=== PATIENT | female | born 1995 | race Caucasian/White ===

== ENCOUNTER 2019-10-18 13:59 | Emergency (ER) | payer BC ==
[~2019-10-18] VITALS: Ht 172.7 cm; Wt 90.0 kg
[2019-10-18 14:20] VITALS: BP 146/75
[2019-10-18] MEDS ORDERED: AMOX1TAB61 PO (14:27)
--- NOTE | 2019-10-18 14:27 | PHYS DOC ---
Past Medical History Past Medical History: Seizure (TRINITY GARCIA DO) Past Surgical History: No Surgical History (TRINITY GARCIA DO) Smoking Status: Never Smoker Alcohol Use: None Drug Use: None (TRINITY GARCIA DO) Adult General Chief Complaint Chief Complaint: DENTAL PROBLEM [facility] HPI Patient is a 23 year old female who presents with dental pain this been ongoing since Friday. The patient states she had her wisdom teeth taken out the past but is unsure how many were taken out. The patient is concerned that she might have a wisdom tooth growing into the back lower right portion of her mouth. Patient says she has been having increasing pain since Friday. The patient does not have a dentist. Denies fevers. Complete ROS were reviewed and found to be within normal limits, except as documented in the HPI (TRINITY LINCOLN APRN) Current Medications Current Medications Current Medications Medications (Trade) Dose Ordered Sig/Windy Start Time Stop Time Status Last Admin Dose Admin Al Hydroxide/Mg Hydroxide (Mylanta Plus Xs) 30 ml 1X ONCE 10/18/19 14:30 10/18/19 14:31 DC 10/18/19 14:55 30 ML Lidocaine HCl (Viscous Lidocaine) 15 ml 1X ONCE 10/18/19 14:30 10/18/19 14:31 DC 10/18/19 14:55 15 ML (TRINITY GARCIA DO) Allergies Allergies Allergies Coded Allergies Type Severity Reaction Last Updated Verified No Known Drug Allergies 10/18/19 No (TRINITY GARCIA DO) Physical Exam Physical Exam Constitutional: Well developed, well nourished, no acute distress, non-toxic appearance. [] HENT: Normocephalic, atraumatic, bilateral external ears normal, oropharynx moist, no oral exudates, nose normal. Appears to have wisdom tooth growing in R lower back teeth. Neurologic: Alert and oriented X 3, normal motor function, normal sensory function, no focal deficits noted. [] Psychologic: Affect normal, judgement normal, mood normal. [] (TRINITY LINCOLN APRN) Current Patient Data Vital Signs Vital Signs Date Time Temp Pulse Resp B/P (MAP) Pulse Ox O2 Delivery O2 Flow Rate FiO2 10/18/19 14:20 98.0 100 18 146/75 (98) 97 Room Air 98.0 (TRINITY GARCIA DO) EKG EKG [] (TRINITY LINCOLN APRN) Radiology/Procedures Radiology/Procedures [] (TRINITY LINCOLN APRN) Course & Med Decision Making Course & Med Decision Making Pertinent Labs and Imaging studies reviewed. (See chart for details) Discussed with the patient that she needs to follow-up with a dentist. Resources given to the patient. Will order dental balls in the ER. (TRINTIY LINCOLN APRN) Dragon Disclaimer Dragon Disclaimer This electronic medical record was generated, in whole or in part, using a voice recognition dictation system. (TRINITY LINCOLN APRN) Departure Departure Impression: Primary Impression: Dentalgia Disposition: HOME, SELF-CARE Condition: STABLE Referrals: NO PCP (PCP) Patient Instructions: Dental Pain Additional Instructions: Thank you for visiting [facility]. We appreciate you trusting us with your care. If any additional problems come up don't hesitate to return to visit us. Please follow up with your primary care provider so they can plan additional care if needed and know about the problem that you had. If symptoms worsen come back to the Emergency Department. Any concerning symptoms that start such as chest pain, shortness of air, weakness or numbness on one side of the body, running high fevers or any other concerning symptoms return to the ER. You have been prescribed an antibiotic today to help fight your infection. Please take all of the antibiotic as directed. If after 48 hours the infection is not improving, please return for more care. If the infection worsens, return to ER for additional care. Scripts Amoxicillin/Potassium Clav (AUGMENTIN 875-125 TABLET) 1 Each Tablet 1 TAB PO BID for 7 Days, #14 TAB 0 Refills Prov: TRINITY LINCOLN APRN 10/18/19 Attending Signature Attending Signature I have reviewed the PA/DIVISION SUPERVISOR's note and plan of care. I was available for consultation as needed during the patient's visit in the emergency department. I agree with the clinical impression, plan, and disposition. (TRINITY GARCIA DO) TRINITY LINCOLN APRN Oct 18, 2019 14:27 TRINITY GARCIA DO Oct 18, 2019 20:38
[2019-10-18] MEDS ORDERED: LIDOCAINE 2% VISCOUS 15 ML SOLUTION. SWSW ONE (14:30)
[2019-10-18] MEDS ORDERED: MAG HYDROX/ALUMINUM HYD/SIMETH 30 ML ORAL.SUSP PO ONE (14:30)
== END 2019-10-18 14:58 | disposition home or self-care (01) ==
LOC: ER 13:59
DX: K08.89 Other specified disorders of teeth and supporting structures (principal)
CPT/HCPCS: 99283

== ENCOUNTER 2020-02-08 16:38 | Emergency (ER) | payer BC ==
[~2020-02-08] VITALS: Ht 172.7 cm; Wt 90.0 kg
[~2020-02-08 16:38] MED LIST: AMOX1TAB61 PO
[2020-02-08 17:54] LABS: BILIRUBIN,URINE SMALL (NEG); CLARITY,URINE CLEAR; COLOR,URINE AMBER
[2020-02-08 17:55] LABS: NITRITE,URINE NEGATIVE (NEG); PH,URINE 6.5 (<5.0-8.0); PROTEIN,URINE NEGATIVE (NEG-TRACE)
[2020-02-08 18:07] LABS: BACTERIA,URINE FEW /HPF (0-FEW); SQUAMOUS EPITHELIAL CELL,UR OCC /LPF
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
[2020-02-08] MEDS ORDERED: CLIN300C8 PO (18:15)
[2020-02-08 18:22] VITALS: BP 105/43
== END 2020-02-08 18:22 | disposition home or self-care (01) ==
LOC: ER 16:38
DX: S30.23XA Contusion of vagina and vulva, initial encounter (principal); N76.0 Acute vaginitis; B96.89 Other specified bacterial agents as the cause of diseases classified elsewhere; Z98.890 Other specified postprocedural states; Z87.891 Personal history of nicotine dependence; X58.XXXA Exposure to other specified factors, initial encounter; Y93.89 Activity, other specified; Y92.89 Other specified places as the place of occurrence of the external cause; Y99.8 Other external cause status
CPT/HCPCS: 81001; 81025; 87086; 99283

== ENCOUNTER 2020-02-29 16:17 | Emergency (ER) | payer BC ==
[~2020-02-29] VITALS: Ht 172.7 cm; Wt 90.9 kg
[~2020-02-29 16:17] MED LIST changes: +CLIN300C8 PO
[2020-02-29 16:36] VITALS: BP 123/56
[2020-02-29] MEDS ORDERED: AZITHROMYCIN 250 MG TABLET. PO ONE (17:00)
[2020-02-29] MEDS ORDERED: cefTRIAXone IM 250 MG VIAL IM ONE (17:00)
[2020-02-29 17:13] LABS: BILIRUBIN,URINE NEGATIVE (NEG); CLARITY,URINE CLEAR; COLOR,URINE YELLOW; NITRITE,URINE NEGATIVE (NEG); PH,URINE 7.5 (<5.0-8.0); PROTEIN,URINE NEGATIVE (NEG-TRACE)
[2020-02-29 17:27] LABS: BACTERIA,URINE FEW /HPF (0-FEW); RBC,URINE OCC /HPF (0-2); SQUAMOUS EPITHELIAL CELL,UR FEW /LPF; WBC,URINE OCC /HPF (0-4)
--- NOTE | 2020-02-29 18:56 | PHYS DOC ---
Past Medical History Past Medical History: Seizure Past Surgical History: Other Additional Past Surgical Histo: WISDOM TEETH Smoking Status: Former Smoker Alcohol Use: Occasionally Drug Use: None General Adult EDM: Chief Complaint: VAGINAL PROBLEM HPI: HPI: Patient is a 24 year old female who presents to the emergency department with complaints of continued vaginal discharge and foul-smelling vaginal odor that i nitially began over a month ago. Patient denies any pelvic pain, abdominal pain, nausea, vomiting or diarrhea, dysuria, increased urinary frequency, hematuria, low back pain, or fever. She reports she is taking antibiotics for bacterial vaginosis and has been treated previously for presumed sexually transmitted infections with no improvement in her symptoms. She denies use of any [id number] douches. She currently denies any pain. Review of Systems: Review of Systems: Constitutional: Denies fever or chills. [] GI: Denies abdominal pain, nausea, vomiting, or diarrhea. [] : Denies dysuria; see HPI. [] Musculoskeletal: Denies back pain Neurologic: Denies headache Psychiatric: Denies depression or anxiety. [] Heart Score: Risk Factors: Risk Factors: DM, Current or recent (<one month) smoker, HTN, HLP, family history of CAD, obesity. Risk Scores: Score 0 - 3: 2.5% MACE over next 6 weeks - Discharge Home Score 4 - 6: 20.3% MACE over next 6 weeks - Admit for Clinical Observation Score 7 - 10: 72.7% MACE over next 6 weeks - Early Invasive Strategies Current Medications: Current Medications Medications (Trade) Dose Ordered Sig/Windy Start Time Stop Time Status Last Admin Dose Admin Azithromycin (Zithromax) 1,000 mg 1X ONCE 02/29/20 17:00 02/29/20 17:01 DC 02/29/20 17:13 1,000 MG Ceftriaxone Sodium (Rocephin Im) 250 mg 1X ONCE 02/29/20 17:00 02/29/20 17:01 DC 02/29/20 17:14 250 MG Allergies: Allergies: Allergies Coded Allergies Type Severity Reaction Last Updated Verified No Known Drug Allergies 10/18/19 No Physical Exam: PE: Constitutional: Well developed, well nourished, no acute distress, non-toxic appearance. HENT: Normocephalic, atraumatic, bilateral external ears normal, nose normal. Eyes: PERRLA, EOMI, conjunctiva normal, no discharge. Neck: Normal range of motion, no stridor. Cardiovascular: Heart rate regular rhythm Lungs & Thorax: Respirations even and unlabored, no retractions, no respiratory distress Pelvic Exam: High School Drafting Teacher present Nida RN Abdomen: Nontender, soft External Genitalia: Normal Skin Speculum: Normal vaginal mucosa, yellow, thick, malodorous cervical discharge present with strawberry appearance to cervix Bimanual: No adnexal masses or tenderness, No CMT Skin: Warm, dry, no erythema, no rash. Extremities: No cyanosis, ROM intact, no edema. Neurologic: Alert and oriented X 3, no focal deficits noted. Psychologic: Affect normal, judgement normal, mood normal. Current Patient Data: Labs: Laboratory Tests Test 02/29/20 16:55 Urine Collection Type Unknown Urine Color Yellow Urine Clarity Clear Urine pH 7.5 (<5.0-8.0) Urine Specific [place] 1.020 (1.000-1.030) Urine Protein Negative mg/dL (NEG-TRACE) Urine Glucose (UA) Negative mg/dL (NEG) Urine Ketones (Stick) Negative mg/dL (NEG) Urine Blood Negative (NEG) Urine Nitrite Negative (NEG) Urine Bilirubin Negative (NEG) Urine Urobilinogen Dipstick 1.0 mg/dL (0.2 mg/dL) Urine Leukocyte Esterase Negative (NEG) Urine RBC Occ /HPF (0-2) Urine WBC Occ /HPF (0-4) Urine Squamous Epithelial Cells Few /LPF Urine Bacteria Few /HPF (0-FEW) Urine Mucus Mod /LPF Microbiology 02/29/20 Wet Prep - Final, Complete Vital Signs: Vital Signs Date Time Temp Pulse Resp B/P (MAP) Pulse Ox O2 Delivery O2 Flow Rate FiO2 02/29/20 16:36 98.2 83 12 123/56 (78) 96 Room Air 98.2 EKG: EKG: [] Radiology/Procedures: Radiology/Procedures: [] Course & Med Decision Making: Course & Med Decision Making Pertinent Labs and Imaging studies reviewed. (See chart for details) Wet mount and UA are unremarkable. Patient was treated prophylactically with 250 mg of IM Rocephin, and 1 g of PO Zithromax. Patient was instructed to avoid having intercourse until the results of gonorrhea and chlamydia testing are available, patient was notified that these results would not be available for 48 hours. If one or both of these tests is positive, patient needs to refrain from intercourse for approximately 1 week following the treatment of any current partners. Patient was encouraged to follow-up with FIRE ALARM INSPECTOR, Dr. Lerma for further evaluation and treatment of this ongoing vaginal problem. Patient verbalized an understanding of home care, medications, follow-up, and return to ED instructions and was in agreement with the plan of care. [] Dragon Disclaimer: Dragon Disclaimer: This electronic medical record was generated, in whole or in part, using a voice recognition dictation system. Departure Departure Impression: Primary Impression: Vaginal odor Additional Impression: Concern about sexually transmitted disease in female without diagnosis Disposition: HOME, SELF-CARE Condition: STABLE Referrals: ESTEBAN LERMA Jr, MD Patient Instructions: Sexually Transmitted Disease, [id number] Additional Instructions: Recommend that you go to your local health department for comprehensive sexually transmitted disease testing. You have been treated for a suspected gonorrhea and chlamydia. Avoid having intercourse until the results of gonorrhea and chlamydia testing are available, these results will not be available for 48 hours. If one or both of these tests is positive, you need to refrain from intercourse for approximately 1 week following the treatment of any current partners. Follow-up with [facility] for further evaluation and treatment, return to the ER if symptoms worsen. Justicifation of Admission Dx: Justifications for Admission: Justification of Admission Dx: N/A JOSE LUIS CAREY APRN Feb 29, 2020 18:55
[2020-03-01 23:08] LABS: GC PROBE Negative (Negative)
== END 2020-02-29 18:23 | disposition home or self-care (01) ==
LOC: ER 16:17
DX: N89.8 Other specified noninflammatory disorders of vagina (principal); Z20.2 Contact with and (suspected) exposure to infections with a predominantly sexual mode of transmission; Z98.890 Other specified postprocedural states; Z87.891 Personal history of nicotine dependence
CPT/HCPCS: 81001; 81025; 87491; 87591; 96372; 99284; J0696; Q0111

== ENCOUNTER → 2020-03-22 | Outpatient (CLI) | payer BC ==
[2020-02-29 16:36] VITALS: BP 123/56
== END | disposition home or self-care (01) ==
LOC: SPEC 11:54
PROVIDERS: ATTEND Obstetrics & Gynecology
DX: N89.8 Other specified noninflammatory disorders of vagina (principal)
CPT/HCPCS: Q0111

== ENCOUNTER 2021-02-14 14:19 | Emergency (ER) | payer BC, OTHER ==
[~2021-02-14] VITALS: Ht 172.7 cm; Wt 86.9 kg
[~2021-02-14 14:19] MED LIST changes: -CLIN300C8 PO; +CLIN300C9 PO
[2021-02-14 15:21] VITALS: BP 112/69
[2021-02-14 17:33] LABS: BILIRUBIN,URINE NEGATIVE (NEG); CLARITY,URINE CLEAR; COLOR,URINE YELLOW; NITRITE,URINE NEGATIVE (NEG); PROTEIN,URINE NEGATIVE (NEG-TRACE); UROBILINOGEN,URINE 0.2 mg/dL (0.2 mg/dL)
[2021-02-14 17:39] LABS: AMPHETAMINE/METHAMPHETAMINE NEG (NEG); BARBITURATES NEG (NEG); BENZODIAZEPINES NEG (NEG); CANNABINOIDS POS (NEG); COCAINE NEG (NEG); METHADONE NEG (NEG); OPIATES NEG (NEG); PHENCYCLIDINE NEG (NEG)
[2021-02-14 17:41] LABS: BACTERIA,URINE 0 /HPF (0-FEW); RBC,URINE 0 /HPF (0-2)
--- NOTE | 2021-02-14 19:13 | PHYS DOC ---
Past Medical History Past Medical History: Seizure Past Surgical History: No Surgical History Additional Past Surgical Histo: WISDOM TEETH Smoking Status: Former Smoker Alcohol Use: Rarely Drug Use: None General Adult EDM: Chief Complaint: OTHER COMPLAINTS HPI: HPI: Patient is a 25 year old female with history of seizures who presents to the ED today with multiple complaints. Patient states for the last couple months she has been evaluated in multiple hospitals as well as the PCP and neurologist for multiple symptoms. Patient states she has had this pain starting from her hair all the way to her toes. This pain is moderate and constant. She states the pain feels like fire going through her body. She states sometimes she cannot even touch items around her because her body hurts. Patient patient states almost anything she is doing triggers the pain. She states she has been evaluated multiple times and everybody tells her everything was fine. She states she believes something is "terribly wrong". She states 3 days ago she was seen at [facility] and they did a CT of her head chest and did lab work which was negative. She states she was told to follow-up with her own doctor. She is crying on and off. She states she has followed up with her own PCP who told her there is nothing wrong. She states nobody is telling her the truth. She states people need to really do some test to figure out what is going on in her body. She spent an incredible amount of time describing her symptoms at some point she was crying stating nobody is helping her and no one believes in her. She states the only medicine she takes is for her seizures. Review of Systems: Review of Systems: Constitutional: Denies fever or chills. [] Eyes: Denies change in visual acuity. [] HENT: Denies nasal congestion or sore throat. [] Respiratory: Denies cough or shortness of breath. [] Cardiovascular: Denies chest pain or edema. [] GI: Denies abdominal pain, nausea, vomiting, bloody stools or diarrhea. [] : Denies dysuria. [] Musculoskeletal: Denies back pain or joint pain. [] Integument: Denies rash. [] Neurologic: Denies headache, focal weakness or sensory changes. [] Psychiatric: Reports pain throughout her body. Heart Score: C/O Chest Pain: N/A Risk Factors: Risk Factors: DM, Current or recent (<one month) smoker, HTN, HLP, family history of CAD, obesity. Risk Scores: Score 0 - 3: 2.5% MACE over next 6 weeks - Discharge Home Score 4 - 6: 20.3% MACE over next 6 weeks - Admit for Clinical Observation Score 7 - 10: 72.7% MACE over next 6 weeks - Early Invasive Strategies Allergies: Allergies: Allergies Coded Allergies Type Severity Reaction Last Updated Verified No Known Drug Allergies 10/18/19 No Physical Exam: PE: Constitutional: Well developed, well nourished, no acute distress, non-toxic appearance. [] HENT: Normocephalic, atraumatic, bilateral external ears normal, oropharynx moist, no oral exudates, nose normal. [] Eyes: PERRLA, EOMI, conjunctiva normal, no discharge. [] Neck: Normal range of motion, no tenderness, supple, no stridor. [] Cardiovascular:Heart rate regular rhythm, no murmur [] Lungs & Thorax: Bilateral breath sounds clear to auscultation [] Abdomen: Bowel sounds normal, soft, no tenderness, no masses, no pulsatile masses. [] Skin: Warm, dry, no erythema, no rash. [] Back: No tenderness, no CVA tenderness. [] Extremities: No tenderness, no cyanosis, no clubbing, ROM intact, no edema. [] Neurologic: Alert and oriented X 3, normal motor function, normal sensory function, no focal deficits noted. Cranial nerves II through XII intact Psychologic: Flat affect, depressed mood Current Patient Data: Labs: Laboratory Tests Test 02/14/21 17:00 02/14/21 17:26 Urine Collection Type Unknown Urine Color Yellow Urine Clarity Clear Urine pH 7.0 (<5.0-8.0) Urine Specific [place] 1.010 (1.000-1.030) Urine Protein Negative mg/dL (NEG-TRACE) Urine Glucose (UA) Negative mg/dL (NEG) Urine Ketones (Stick) Negative mg/dL (NEG) Urine Blood Negative (NEG) Urine Nitrite Negative (NEG) Urine Bilirubin Negative (NEG) Urine Urobilinogen Dipstick 0.2 mg/dL (0.2 mg/dL) Urine Leukocyte Esterase Small (NEG) Urine RBC 0 /HPF (0-2) Urine WBC 11-20 /HPF (0-4) Urine Squamous Epithelial Cells Few /LPF Urine Bacteria 0 /HPF (0-FEW) Urine Opiates Screen Neg (NEG) Urine Methadone Screen Neg (NEG) Urine Barbiturates Neg (NEG) Urine Phencyclidine Screen Neg (NEG) Urine Amphetamine/Methamphetamine Neg (NEG) Urine Benzodiazepines Screen Neg (NEG) Urine Cocaine Screen Neg (NEG) Urine Cannabinoids Screen Pos (NEG) Urine Ethyl Alcohol Neg (NEG) POC Urine HCG, Qualitative Hcg negative (Negative) Vital Signs: Vital Signs Date Time Temp Pulse Resp B/P (MAP) Pulse Ox O2 Delivery O2 Flow Rate FiO2 02/14/21 15:21 94.6 85 16 112/69 99 Room Air 94.6 EKG: EKG: [] Radiology/Procedures: Radiology/Procedures: [] Course & Med Decision Making: Course & Med Decision Making Pertinent Labs and Imaging studies reviewed. (See chart for details) This is a 25-year-old female patient presenting to the ED today with multiple complaints, see HPI. Patient has been worked up at multiple facilities including her own PCP and they cannot find anything wrong. In short she is complaining of pain from her head to her toes. She believes something wrong is happening to her. She has been tearful during the stay in the ED. I talked to her at length and recommended she considers a psychiatric evaluation by our pat team. Initially she refused and stated nobody is helping her. I told in the ED I can do some work-up but I do not think I will find anything acute considering she has already being worked up by multiple providers and nothing acute has been found including 3 days ago being seen at [facility]. I ordered some labs on her i later was informed she left the Ed Dragon Disclaimer: Alysha Disclaimer: This electronic medical record was generated, in whole or in part, using a voice recognition dictation system. Departure Departure Impression: Primary Impression: Chronic pain Qualified Codes: G89.29 - Other chronic pain Additional Impression: Evaluation by psychiatric service required Disposition: LEFT AGAINST MEDICAL ADVICE Condition: STABLE Referrals: NO PCP (PCP) YOLA PERKINS BAR EXAMINER Feb 14, 2021 19:13
== END 2021-02-14 17:39 | disposition left against medical advice (07) ==
LOC: ER 14:19
DX: G89.29 Other chronic pain (principal); Z87.891 Personal history of nicotine dependence
CPT/HCPCS: 80307; 81001; 81025; 99283

== ENCOUNTER → 2021-02-15 | Outpatient (CLI) | payer OTHER ==
[2021-02-14 15:21] VITALS: BP 112/69
== END ==
LOC: SPEC 12:11
PROVIDERS: ATTEND Obstetrics & Gynecology
DX: N89.8 Other specified noninflammatory disorders of vagina (principal)
CPT/HCPCS: Q0111

== ENCOUNTER → 2021-09-29 | Outpatient (CLI) | payer OTHER ==
[~2021-09-29] MED LIST changes: +CLIN-94 PO; -CLIN300C9 PO
== END ==
LOC: SPEC 07:48
PROVIDERS: ATTEND Obstetrics & Gynecology
DX: N89.8 Other specified noninflammatory disorders of vagina (principal)
CPT/HCPCS: Q0111

== ENCOUNTER → 2021-10-31 | Outpatient (CLI) | payer OTHER | LOC: LAB 21:08 | PROVIDERS: ATTEND Obstetrics & Gynecology | DX: N89.8 Other specified noninflammatory disorders of vagina (principal) | CPT/HCPCS: Q0111 ==